=== PATIENT | female | born 1960 | race African-American/Black ===

== ENCOUNTER → 2016-11-29 | Outpatient (CLI) | payer MEDICARE, MEDICAID ==
[~2016-11-29] MED LIST: ACCUNEB SOL3 ML/NEB IN; ASPIRIN EC325 MG PO; ATROVENT INH; 114 GM IN; BACTRIM DS 8001 TAB PO; BISOPROLOL 5MG T5 MG PO; CALCIUM 600MG+D1 TAB PO; CARLSON VITAM2000 IU PO; CHLORASEPTIC 1177 ML PO; CIPRO 500MG TA500 MG PO; CIPROFLOXACIN500 MG PO; COMBIVENT INH14.7 GM IN; COMBIVENT RESPI1 SPR IH; CYCLOBENZAPRINE10 M1 OR; DARVOCET-N 1001 EACH PO; DEXILANT60 MG PO; DIOVAN160 MG PO; EXCEDRIN TENSIO1 CAP PO; FLEXERIL10 M1 PO; FLUTICASONE 50M16 GM; FUROCOT40 MG PO; HYCODAN 1.5 MG-1 TAB PO; IBU-8800 MG PO; IBUPROFEN200 MG PO; IBUPROFEN800 MG PO; IPRAT-ALBUT 0.5-3(2. INH; IPRATROPIU0.5 MG/2.5 IN; KAPIDEX60 MG PO; KETOROLAC TROMET5 M1 OP; KLOR-CON M2020 ME1 PO; LEVAQUIN500 MG PO; LISINOPRIL 10MG10 MG PO; LORTAB 10/3251 TAB PO; LORTAB 5/500 501 TAB PO; MAXAIR0.2 MG/ACT IH; MEDROL 4MG. DOSE4 MG PO; METHYLPREDNISONE4 MG PO; MULTI VITAMINS1 TAB PO; NORVASC 5MG. TAB5 MG PO; OFLOXACIN 10 ML10 ML OT; OXAPROZIN600 MG PO; PHENERGAN 25MG.25 M1 PO; POTASSIUM CHLO20 ME2 PO; PREDNISONE 10MG10 MG PO; PREDNISONE 5MG.5 MG PO; PRILOSEC40 MG PO; SAVELLA50 MG PO; SINGULAIR10 MG PO; SPIRONOLACTONE25 MG PO; STERAPRED DS10 MG PO; SYMBICORT1 AE1 IH; SYMBICORT1 AER IH; TESSALON PERLE200 MG PO; TRAMADOL 50MG T50 MG PO; ULTRAM50 MG PO; VALTREX1 GM PO; VENTOLIN H0.09 MG/AC IH; VERAMYST27.5 MCG/A; VERAMYST27.5 MCG/A NS; VIBRAMYCIN 100100 MG PO; VITAMIN D1000 IU PO; ZITHROMAX Z PA250 MG PO; ZITHROMAX Z-PA250 M1 PO; ZITHROMAX Z-PA250 M2 PO; ZOFRAN ODT4 MG PO; ZOFRAN4 MG PO; [UNRECOGNIZED DRUG - OTHER]; [UNRECOGNIZED DRUG - OTHER]; [UNRECOGNIZED DRUG - OTHER] PO; [UNRECOGNIZED DRUG - OTHER] PO
== END ==
LOC: RT 09:33
DX: J45.909 Unspecified asthma, uncomplicated (principal); Z86.2 Personal history of diseases of the blood and blood-forming organs and certain disorders involving the immune mechanism

== ENCOUNTER → 2017-01-23 | Outpatient (CLI) | payer MEDICARE, MEDICAID ==
--- NOTE | 2017-01-23 16:07 | RADIOLOGY REPORT PS360 ---
CT CHEST W/O CONTRAST HISTORY: SOB, ASTHMA ORDERING PHYSICIAN: THIERNO DIMAS MD PATIENT AGE: 56 years TECHNIQUE: Helical acquisition obtainedwithout contrast. Axial, sagittal, and coronal reformatted images are generated and reviewed. COMPARISON: None FINDINGS: No mediastinal or hilar mass is evident. Small hiatal hernia. Calcified granuloma is present in the left upper lobe. The remaining lungs are clear. There is no evidence of adenopathy. No abnormal interstitial changes are apparent. No infiltrates or suspicious nodules or effusions. IMPRESSION: 1. No acute finding, essentially negative CT chest without contrast. 2. Old granulomatous disease. 3. Small hiatal hernia
== END ==
LOC: RAD 13:05
DX: J45.909 Unspecified asthma, uncomplicated (principal); D86.9 Sarcoidosis, unspecified; R06.02 Shortness of breath

== ENCOUNTER → 2017-03-27 | Outpatient (CLI) | payer MEDICARE, MEDICAID | LOC: SL 20:09 | DX: G47.33 Obstructive sleep apnea (adult) (pediatric) (principal) ==

== ENCOUNTER 2017-08-28 16:08 | Emergency (ER) | payer MEDICARE, MEDICAID ==
[~2017-08-28] VITALS: Ht 165.1 cm; Wt 158.8 kg
[2017-08-28] MEDS ORDERED: SYMBICORT1 AER IH (16:31)
[2017-08-28] MEDS ORDERED: PAMPRIN MULTI-S1 TAB PO (16:33)
[2017-08-28] MEDS ORDERED: MEDROL 4MG. DOSE4 MG PO (16:47)
[2017-08-28] MEDS ORDERED: ZITHROMAX Z PA250 MG PO (16:47)
--- NOTE | 2017-08-28 16:47 | Urgent Treatment Center Report ---
History of Present Issue Date/Time Seen by Provider 08/28/17 1647 Visit Reason Pt arrived:Walked Presenting Problem:PT C/O OF EAR ACHE, EYE AND JAW PAIN ON THE RIGHT SIDE. Location if Accident: Onset of symptoms date/time:08/28/17 or onset unknown for: Have you (or family members/close friends) recently traveled outside the [place]? N If Yes, where/when: Have you had exposure to infectious disease within the past month? TB? Other? Specify: Patient states that she was recently treated for ear infection a couple of weeks ago. State that now she is having pain again in her right ear and feeling like her sinuses are all stopped up and feeling of pressure behind her eye and making the right side of her face hurt. State that she feels like she is swollen or puffy under her right eye from her sinuses States that she was blowing out clear mucous but now it is yellowish green and thinks she has a sinus infection causing everything to back up ALLERGIES Coded Allergies: ampicillin (Severe, 09/07/16) cephalexin (From KEFLEX) (Mild, 02/22/16) diclofenac (Mild, 11/23/15) morphine (Mild, 11/23/15) amoxicillin (From AUGMENTIN) (11/23/15) clavulanic acid (From AUGMENTIN) (11/23/15) Home Medications Reported Medications FLUTICASONE PROPIONATE (Fluticasone 50MCG Nasal [place]) 2 SPRAY NA BID #16 Furosemide (Furocot) 40 MG PO DAILY Spironolactone (Spironolactone) 25 MG PO BID Methylprednisolone (Methylprednisone) 4 MG PO BID BISOPROLOL FUMARATE (Bisoprolol 5MG) 2.5 MG PO BID ALBUTEROL (Ventolin Hfa) 1 PUFF IH Q6H6 Dexlansoprazole (Dexilant) 60 MG PO DAILY #30 BUDESONIDE/FORMOTEROL FUMARATE (Symbicort 80-4.5 Mcg Inhaler) 2 PUFF IH BID ACETAMINOPHEN/PYRILAM/PAMABROM (Pamprin Multi-Symptom Tab) 1 TAB PO PRN PRN PAIN Oxaprozin 300 MG PO DAILY #60 History Medical History General CAD? No Angina: Yes [place]: No Hypertension? Yes Hyperlipidemia? Yes CHF? No DVT? No PE? No COPD? Yes Asthma? Yes Anemia? No GERD? No Gastric ulcers? No GI Bleed? No Hernia? No Thyroid Problems? No Hypothyroidism? No CVA? No Seizures? No Diabetes? No Renal Insuffiency? No UTI? No Stones? No BPH? No GB Disease: No Nephritic Syndrome? No Asplenia? No Hepatitis? No Sickle Cell Disease? No Arthritis? No Migraines? No Cataracts? No Glaucoma? No MRSA? No HIV? No TB? No Anxiety? No Depression? No Cancer? No More? Yes Additional hx: EPITAXIS, MALFUNCTIONING EUSTACHIAN TUBE Immunization HX DT/Tetanus > 10 YRS Surgical Hx Previous Surgery?Y FINGER LEFT INDEX BOTH KNEES BX OF LUNG TONSILECTOMY RIGHT THUMB LEFT ELBOW RIGHT HIP REPLACE Social History Smoking Hx Smoker: Never Smoker Tobacco: No Alcohol Alcohol: No Review of Systems All Other Systems Reviewed and Negative ENT ear pain, nose discharge, nose congestion, throat pain. Respiratory cough Physical Exam Vital Signs Vital Signs Date Time Temp Pulse Resp B/P Pulse O2 O2 Flow FiO2 Ox Delivery Rate 08/28 1620 97.9 111 22 123/76 97 General Appearance normal appearance, WD/WN, no apparent distress Ear, Nose, Throat sinus pain/drainage, nasal congestion, Tenderness noted frontal sinuses, no redness right ear, fluid noted, throat red irritated with drainage noted Respiratory Status Yes: trachea midline, chest symmetrical, non tender chest. No: respiratory distress. Cardiovascular normal exam, regular rate/rhythm Neurologic alert, normal exam, oriented x 3 Medical Decision Making LABS/Meds/Orders Pt receiving controlled substance in ED? No Departure Departure Time of Disposition 1644 Disposition DC Home or Self Care(routine) Clinical Impression Primary Impression: Sinusitis Qualifiers: Sinusitis location: frontal Chronicity: unspecified Qualified Code: J32.1 - Chronic frontal sinusitis Condition STABLE Referrals GELY VILLAFUERTE (Family): 3 Days-Call Office if no improvement Patient Instructions DI for Sinusitis, Sinus Headache, Sinusitis Additional Instructions Start antibiotic. Sinus infections may take 2-3 days to notice much improvement so be sure to use conservative measures as discussed for symptoms Ok to continue Sudafed Flonase 2 spray in each nostril daily to help with nasal congestion, sinus an ear pressure/inflammation Lots of Fluids Sleep elevated Humidifer/vaporizer Discharge Counseling Counseled pt/family regarding diagnosis, medications/RX, home care, follow up needs Prescriptions Current Visit Scripts Azithromycin (Zithromycin (Z-ABNER) 250MG Tab) 250 MG PO DAILY #6 TAB TAKE TWO (2) TABLETS ON DAY 1, THEN ONE (1) TABLET DAY #2 THRU #5 Methylprednisolone (Medrol Dose Abner) 4 MG PO UD #1 ABNER TAKE DIRECTED ON PACKAGING at 0450
[2017-08-28 16:48] VITALS: BP 123/76
--- OUTSIDE RECORDS SUMMARY | 2017-08-28 16:55 | External Medical Summary Rpt | CCD ---
Demographics Preferred Language Irish Marital Status Unknown Rastafari Affiliation Unknown Race Unknown Ethnic Group Unknown Author Author , AIDA PARRA Address Unknown Phone Immunization No patient found.
--- OUTSIDE RECORDS SUMMARY | 2017-08-28 16:55 | External Medical Summary Rpt ---
Author Author AIDA Johnson, AIDA Johnson Organization [employer] Address Unknown Phone Unavailable
--- OUTSIDE RECORDS SUMMARY | 2017-08-28 16:55 | External Medical Summary Rpt | CCD ---
Demographics Preferred Language Telugu Marital Status Unknown Judaism Affiliation Unknown Race Unknown Ethnic Group Unknown Author Author , AIDA PARRA Address Unknown Phone Immunization No patient found.
== END 2017-08-28 16:53 | disposition home or self-care (01) ==
LOC: ER 16:08 → UTC 16:16 → ER 16:16 → UTC 16:53
DX: J32.1 Chronic frontal sinusitis (principal); I10 Essential (primary) hypertension; J44.9 Chronic obstructive pulmonary disease, unspecified; Z96.643 Presence of artificial hip joint, bilateral; Z79.51 Long term (current) use of inhaled steroids; Z79.899 Other long term (current) drug therapy